=== PATIENT | female | born 1975 | race Caucasian/White ===

== ENCOUNTER 2019-04-15 05:16 | Emergency (ER) | payer OTHER ==
[~2019-04-15] VITALS: Ht 167.6 cm; Wt 100.4 kg
--- NOTE | 2019-04-15 05:48 | PHYS DOC ---
Adult General Chief Complaint Chief Complaint: COUGH "..I ve had this cough.. I can't get any sleep.. my throat is sore... 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 Cough has been somewhat nonproductive. Is exposed to numerous patients in the emergency department. No history immunosuppression. No history of recent travel. Patient is normally healthy. Patient did receive flu vaccination this season as part of her employment requirement at [employer] and [facility]. Has been doing oaat-elr-yrkufhm meds without much relief Review of Systems Review of Systems Constitutional: Denies fever or chills [] Eyes: Denies change in visual acuity, redness, or eye pain [] HENT: Complains of nasal congestion and sore throat [] Respiratory: Complaints of cough Cardiovascular: No additional information not addressed in HPI [] GI: Denies abdominal pain, nausea, vomiting, bloody stools or diarrhea [] : Denies dysuria or hematuria [] Musculoskeletal: Denies back pain or joint pain [] Integument: Denies rash or skin lesions [] Neurologic: Denies headache, focal weakness or sensory changes [] Endocrine: Denies polyuria or polydipsia [] All other systems were reviewed and found to be within normal limits, except as documented in this note. Family History Family History Noncontributory Current Medications Current Medications See nursing for home meds Allergies Allergies No known drug allergies Physical Exam Physical Exam Constitutional: Well developed, well nourished, mild distress, non-toxic appearance. [] HENT: Normocephalic, atraumatic, bilateral external ears normal, oropharynx moist, moderate injection pharyngeal, no oral exudates, nose swollen turbinates and clear rhinorrhea. Very good dentition . Some flu id behind TM,s but not injected. Eyes: PERRLA, EOMI, conjunctiva normal, no discharge. [] Neck: Normal range of motion, no tenderness, supple, no stridor. [No adenopathy. Cardiovascular:Heart rate regular rhythm, no murmur [] Lungs & Thorax: Bilateral breath sounds equal apex with scattered wheezes on auscultation [. The is some mild crackles and rhonchi on right base posteriorly. Abdomen: Bowel sounds normal, soft, no tenderness, no masses, no pulsatile masses. [] Skin: Warm, dry, no erythema, no rash. [] Back: No tenderness, no CVA tenderness. [] Extremities: No tenderness, no cyanosis, no clubbing, ROM intact, no edema. [] No obvious cording in calfs. Neurologic: Alert and oriented X 3, normal motor function, normal sensory function, no focal deficits noted. [] Psychologic: Affect normal, judgement normal, mood normal. [] EKG EKG [] Radiology/Procedures Radiology/Procedures I interpretation chest dictation of chest x-ray shows no acute cardiopulmonary findings.[] Course & Med Decision Making Course & Med Decision Making Pertinent Labs and Imaging studies reviewed. (See chart for details) Patient continue paac-rtu-xlemvhw meds as needed for drainage and congestion. Take Benadryl 50 mg at night with two Vicoprofen. Use MDI 2 puffs 4 times a day take prednisone 50 mg a day for 5 days. Push fluids. Get adequate rest. Follow- up primary care. Trial of Tessalon Perles. Return if any concerns. Impression: 1. Cough 2. Viral syndrome [] Dragon Disclaimer Dragon Disclaimer This electronic medical record was generated, in whole or in part, using a voice recognition dictation system. Departure Departure: Disposition: HOME/RESIDENCE PRIOR TO ADM Condition: STABLE Referrals: BERNIE BEY APRN (PCP) Scripts Hydrocodone/Ibuprofen (HYDROCODONE-IBUPROFEN 7.5-200 ) 1 Each Tablet 2 TAB PO PRN Q6HRS PRN for PAIN, #30 TAB 0 Refills Prov: DOMINICK ONEILL MD 04/15/19 Benzonatate (TESSALON PERLE) 100 Mg Capsule 1 CAP PO TID for cough, #21 CAP Prov: DOMINICK ONEILL MD 04/15/19 Prednisone (PREDNISONE) 50 Mg Tablet 50 MG PO DAILY for cough for 5 Days, #5 TAB Prov: DOMINICK ONEILL MD 04/15/19 Kaila Disclaimer This chart was dictated in whole or in part using Voice Recognition software in a busy, high-work load, and often noisy Emergency Department environment. It may contain unintended and wholly unrecognized errors or omissions. DOMINICK ONEILL MD Apr 15, 2019 05:48
[2019-04-15] MEDS ORDERED: BENZ100C PO (05:54)
[2019-04-15] MEDS ORDERED: PRED50TA PO (05:54)
[2019-04-15] MEDS ORDERED: HYDR-1179 PO (05:58)
[2019-04-15] MEDS ORDERED: ALBUTEROL SULFATE 8GM INHALER. INH ONE (06:00)
[2019-04-15] MEDS ORDERED: predniSONE 20 MG TABLET PO ONE (06:00)
[2019-04-15] MEDS ORDERED: CETI10TA24 PO (06:15)
[2019-04-15] MEDS ORDERED: nyquil (06:17)
[2019-04-15] MEDS ORDERED: dayquil (06:17)
[2019-04-15] MEDS ORDERED: DOXY1TAB2 PO (06:17)
[2019-04-15] MEDS ORDERED: IBUP-571 PO (06:17)
[2019-04-15 06:42] LABS: INFLUENZA A PATIENT NEGATIVE (NEGATIVE); INFLUENZA B PATIENT NEGATIVE (NEGATIVE)
[2019-04-15 06:53] VITALS: BP 116/62
--- NOTE | 2019-04-15 07:23 | RAD ---
EXAM: CHEST 2 VIEWS. HISTORY: Cough, right basilar rhonchi. COMPARISON: None. FINDINGS: Frontal and lateral views of the chest are obtained. There are no confluent infiltrates. There is no pneumothorax or pleural effusion. The heart is not enlarged. IMPRESSION: 1. No confluent infiltrates. Electronically signed by: Ashwin Rivas MD (04/15/2019 7:20 AM) [facility]
== END 2019-04-15 06:54 | disposition home or self-care (01) ==
LOC: ER 05:16
DX: B34.9 Viral infection, unspecified (principal)
CPT/HCPCS: 71046; 87070; 87804; 87880; 94640; 99285; J7512; J7613; 94664

== ENCOUNTER → 2019-04-17 | Outpatient (CLI) | payer OTHER ==
[2019-04-15 06:53] VITALS: BP 116/62
[~2019-04-17] MED LIST: BENZ100C PO; CETI10TA24 PO; DOXY1TAB2 PO; HYDR-1179 PO; IBUP-571 PO; PRED50TA PO; dayquil; nyquil
--- NOTE | 2019-04-17 16:47 | RAD ---
DATE: 04/17/2019 EXAM: MAMMO TRINO SCREENING BILATERAL HISTORY: Routine screening COMPARISON: 08/13/2015 screening mammographic exam This study was interpreted with the benefit of Computerized Aided Detection (CAD). Breast Density: HETERO The breast parenchyma is heterogenously dense, which could reduce sensitivity of mammography. Breast parenchyma level C. FINDINGS: Biopsy clip marker involves the left upper-outer breast. No suspicious calcifications, masses, or suspicious distortion. IMPRESSION: Stable BI-RADS CATEGORY: 1 NEGATIVE RECOMMENDED FOLLOW-UP: 12M 12 MONTH FOLLOW-UP PQRS compliance statement: Patient information was entered into a reminder system with a target due date for the next mammogram. Mammography is a sensitive method for finding small breast cancers, but it does not detect them all and is not a substitute for careful clinical examination. A negative mammogram does not negate a clinically suspicious finding and should not result in delay in biopsying a clinically suspicious abnormality. "Our facility is accredited by the [employer] Mammography Program."
== END | disposition home or self-care (01) ==
LOC: MAMMO 09:59
PROVIDERS: ATTEND Physician Assistant Medical
DX: Z12.31 Encounter for screening mammogram for malignant neoplasm of breast (principal)
CPT/HCPCS: 77063; 77067

== ENCOUNTER → 2019-04-17 | Outpatient (CLI) | payer OTHER ==
[2019-04-15 06:53] VITALS: BP 116/62
[2019-04-17 10:24] LABS: BASO % 0 % (0-3); EOS % 0 % (0-3); HEMATOCRIT 39.6 % (36.0-47.0); HEMOGLOBIN 13.3 g/dL (12.0-15.5); LYMPH # 1.9 x10^3/uL (1.0-4.8); LYMPH % 15 % (24-48); MEAN CORPUSCULAR HEMOGLOBIN 30 pg (25-35); MEAN CORPUSCULAR HGB CONC 34 g/dL (31-37); MEAN CORPUSCULAR VOLUME 88 fL (79-100); MONO # 0.5 x10^3/uL (0.0-1.1); MONO % 4 % (0-9); NEUT # 10.5 x10^3uL (1.8-7.7); NEUT % 81 % (31-73); PLATELET COUNT 248 x10^3/uL (140-400); RED BLOOD COUNT 4.49 x10^6/uL (3.50-5.40); RED CELL DISTRIBUTION WIDTH 12.9 % (11.5-14.5)
[2019-04-17 10:33] LABS: CALCIUM 8.9 mg/dL (8.5-10.1); GFR 78.7; TOTAL BILIRUBIN 0.4 mg/dL (0.2-1.0); TOTAL PROTEIN 7.3 g/dL (6.4-8.2)
[2019-04-17 11:21] LABS: ALBUMIN 3.4 g/dL (3.4-5.0); ALBUMIN/GLOBULIN RATIO 0.9 (1.0-1.7); CREATININE 0.8 mg/dL (0.6-1.0); POTASSIUM 3.8 mmol/L (3.5-5.1)
[2019-04-17 14:16] LABS: FREE T4 0.98 ng/dL (0.76-1.46)
[2019-04-17 14:17] LABS: THYROID STIM HORMONE (TSH) 0.642 uIU/mL (0.358-3.740)
[2019-04-17 17:07] LABS: FSH 9.1 mIU/mL (.); LUTEINIZING HORMONE 3.3 mIU/mL (.); PROGESTERONE 0.5 ng/mL (.)
[2019-04-19 07:08] LABS: ESTROGEN LEVEL 140 pg/mL (.)
== END | disposition home or self-care (01) ==
LOC: LAB 07:13
PROVIDERS: ATTEND Physician Assistant Medical
DX: Z11.3 Encounter for screening for infections with a predominantly sexual mode of transmission (principal); N91.2 Amenorrhea, unspecified
CPT/HCPCS: 36415; 80053; 80061; 82672; 83001; 83002; 84144; 84439; 84443; 85025; 86592; 86703; 87529